=== PATIENT | female | born 1995 | race Caucasian/White ===

== ENCOUNTER 2020-10-21 08:28 | Emergency (ER) | payer OTHER ==
[~2020-10-21] VITALS: Ht 165.1 cm; Wt 58.2 kg
[2020-10-21] MEDS ORDERED: orphenadrine citrate 60mg/2ml inj. IM ONE (08:35)
[2020-10-21] MEDS ORDERED: ketorolac trometh inj. 60 MG/2 ML VIAL IM ONE (08:35)
[2020-10-21] MEDS ORDERED: NAPR-56 PO (09:07)
[2020-10-21] MEDS ORDERED: ORPH100T2 PO (09:07)
[2020-10-21 09:19] VITALS: BP 103/69
== END 2020-10-21 09:21 | disposition home or self-care (01) ==
LOC: ER 08:28
DX: S13.4XXA Sprain of ligaments of cervical spine, initial encounter (principal); S16.1XXA Strain of muscle, fascia and tendon at neck level, initial encounter; Z79.899 Other long term (current) drug therapy; V87.7XXA Person injured in collision between other specified motor vehicles (traffic), initial encounter; Y93.89 Activity, other specified; Y92.89 Other specified places as the place of occurrence of the external cause; Y99.8 Other external cause status
CPT/HCPCS: 72040; 96372; 99284; J1885; J2360